=== PATIENT | male | born 1980 | race Two or more races ===

== ENCOUNTER → 2019-03-25 | Emergency (ER) | payer SELFPAY ==
[~2019-03-25] VITALS: Ht 170.2 cm; Wt 81.6 kg
[~2019-03-25] MED LIST: IBUP200C14
[2019-03-25 15:00] VITALS: BP 165/105
== END | disposition left against medical advice (07) ==
LOC: ER 14:55
DX: M54.9 Dorsalgia, unspecified (principal); Z53.21 Procedure and treatment not carried out due to patient leaving prior to being seen by health care provider